=== PATIENT | female | born 1980 | race Caucasian/White ===

== ENCOUNTER 2022-01-30 05:29 | Day surgery (SDC) | payer BC ==
[2022-01-25 16:01] LABS: Hemoglobin 14.2 g/dL (12.0-15.5); Mean Corpuscular HGB CONC 34.5 g/dL (32.0-36.0); Mean Corpuscular Hemoglobin 29.3 pg (27.0-33.0); Mean Corpuscular Volume 84.7 fl (81.6-98.3); Mean Platelet Volume 9.2 fl (7.4-10.4); Platelet Count 467 10x3/uL (150-450); Red Blood Cell (RBC) Count 4.85 10x6/uL (3.90-5.03); White Blood Cell (WBC) Count 8.4 10x3/uL (3.5-10.5)
[2022-01-25 16:06] LABS: Anion Gap 15 mmol/L (10-20); BUN (Urea Nitrogen) 18 mg/dL (7.0-18.7); Calc. Creatinine Clearance 0 mL/min (70-130); Carbon Dioxide 25 mmol/L (22-29); Chloride 103 mmol/L (98-107); Estimated GFR 89; Glucose 89 mg/dL (70-105); Potassium 4.1 mmol/L (3.5-5.1); Sodium 139 mmol/L (136-145)
[2022-01-25 16:12] LABS: BHCG - Serum Negative (NEGATIVE); Pregs Control Background? CLEAR/WHITE (CLR/WHITE); Pregs Control Bar Appear? YES (CONTROL BAR)
[2022-01-29 09:02] VITALS: BMI 46.0
[2022-01-30] MEDS ORDERED: Gabapentin 300 MG CAP ONE (06:24)
[2022-01-30] MEDS ORDERED: Famotidine/PF 20 mg/2ml Vial ONE (06:24)
[2022-01-30] MEDS ORDERED: CeleCOXIB 100 MG CAP ONE (06:25)
[2022-01-30] MEDS ORDERED: Fentanyl 100 MCG/2 ML VIAL ONE ×2 (06:36→06:37)
[2022-01-30] MEDS ORDERED: Ondansetron PF 4 MG/2 ML Vial ONE (06:36)
[2022-01-30] MEDS ORDERED: Glycopyrrolate 0.2 MG/ML 5 ML SYRINGE ONE (06:36)
[2022-01-30] MEDS ORDERED: Midazolam HCl 2 mg/2 ml Vial ONE ×2 (06:36→07:00)
[2022-01-30] MEDS ORDERED: PROPOFOL 20 ML ONE (06:36)
[2022-01-30] MEDS ORDERED: Ketorolac Tromethamine 30 MG/ML VIAL ONE (06:36)
[2022-01-30] MEDS ORDERED: Dexamethasone 4 mg/ml Vial ONE (06:36)
[2022-01-30] MEDS ORDERED: Lidocaine 1% PF 5 ML VIAL ONE (06:36)
[2022-01-30] MEDS ORDERED: Rocuronium Bromide 10 MG/ML (10ML VIAL) ONE (06:36)
[2022-01-30] MEDS ORDERED: Bupivacaine PF 0.5% 30 ML VIAL ONE (06:40)
[2022-01-30] MEDS ORDERED: EPINEPHrine 1 MG/ML AMP ONE (06:40)
[2022-01-30] MEDS ORDERED: CEFAZOLIN 2 GM VIAL ONE (07:08)
[2022-01-30] MEDS ORDERED: Meperidine HCl/PF 25 MG/ML VIAL ONE (09:11)
[2022-01-30] MEDS ORDERED: HYDROcodone/Acetaminophen 5/325 mg Tablet ONE ×2 (10:42→10:56)
== END 2022-01-30 14:00 | disposition home or self-care (01) ==
LOC: CSHSDC 05:29
PROVIDERS: ATTEND Obstetrics & Gynecology
PROC: 0UT74ZZ Resection of Bilateral Fallopian Tubes, Percutaneous Endoscopic Approach (ICD-10-PCS; principal; 2022-01-30)
PROC: 0UT94ZZ Resection of Uterus, Percutaneous Endoscopic Approach (ICD-10-PCS; principal; 2022-01-30)
DX: N80.03 Adenomyosis of the uterus (principal); N72 Inflammatory disease of cervix uteri; N88.8 Other specified noninflammatory disorders of cervix uteri; N80.203 Endometriosis of bilateral fallopian tubes, unspecified depth; N83.8 Other noninflammatory disorders of ovary, fallopian tube and broad ligament; N92.0 Excessive and frequent menstruation with regular cycle; N94.6 Dysmenorrhea, unspecified; I10 Essential (primary) hypertension; E78.5 Hyperlipidemia, unspecified; E89.0 Postprocedural hypothyroidism; F32.A Depression, unspecified; Z79.899 Other long term (current) drug therapy; Z98.890 Other specified postprocedural states
CPT/HCPCS: 36415; 80048; 84703; 85027; 86850; 86900; 86901; 88307; 88342; J0171; J1100; J1885; J2175; J2250; J2405; J2704; J3010; S0020; S0028